=== PATIENT | female | born 1985 | race African-American/Black ===

== ENCOUNTER 2017-06-09 13:43 | Outpatient (CLI) | payer SELFPAY ==
--- NOTE | 2017-06-09 14:55 | Ultrasound Report ---
Bilateral digital diagnostic mammogram with CAD and targeted left breast ultrasound. History: Palpable lump in the left breast. This is a baseline study. Findings: The breast parenchyma is fairly dense and relatively symmetrical. No masses or architectural distortion. There are no suspicious microcalcifications. Sonographic evaluation of the palpable area near the 9:00 position of the left breast demonstrates no evidence of a cystic or solid mass. Impression: Negative mammogram and left breast ultrasound. BI-RADS code: 1. Recommendation: Routine screening schedule, ACS guidelines.
== END 2017-06-09 13:44 | disposition home or self-care (01) ==
LOC: US 13:43
PROVIDERS: ATTEND Family Medicine
DX: N63.20 Unspecified lump in the left breast, unspecified quadrant (principal); R92.8 Other abnormal and inconclusive findings on diagnostic imaging of breast; Z80.3 Family history of malignant neoplasm of breast
CPT/HCPCS: 77066